=== PATIENT | male | born 1960 | race Hispanic/Latino ===

== ENCOUNTER 2017-05-15 11:28 | Emergency (ER) | payer OTHER ==
[2017-05-15 11:44] VITALS: BP 141/92
--- NOTE | 2017-05-15 12:08 | XRay Report ---
Left ankle 3 views: History: Left ankle and foot pain. 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 There is suspicion of fusion noted at the posterior aspect of the subtalar joint. Arthritic changes are noted at the naviculocuneiform joints dorsally. Spur posterior inferior calcaneum. Impression: Findings as detailed above. No evidence of acute fracture.
[2017-05-15] MEDS ORDERED: DECADRON IM ONE (14:11)
[2017-05-15] MEDS ORDERED: DEPO-MEDROL IM ONE (14:12)
[2017-05-15] MEDS ORDERED: ULTRAM PO ONE (14:12)
--- NOTE | 2017-05-15 14:14 | Emergency Department Report ---
ED Lower Extremity HPI - General Chief Complaint: Extremity Injury, Lower Stated Complaint: rolled l benita yest; now w foot pain he thinks is gout flare Time Seen by Provider: 05/15/17 14:07 Source: patient Mode of arrival: Ambulatory Limitations: No Limitations - History of Present Illness MD Complaint: foot injury, other (foot pain) -: Gradual, days(s) (2), unknown (recurrent a/c gout) Injury: Foot: Left Type of Injury: other (rolled ankle yest but more foot pain dt gout) Place: home Severity: mild Improves With: nothing Worsens With: weight bearing Context: other (rolled; gout) Associated Symptoms: swelling Treatments Prior to Arrival: NSAIDS - Related Data Previous Rx's Medication Instructions Recorded Last Taken Type Colchicine 0.6 mg PO DAILY #6 capsule 05/15/17 Unknown Rx predniSONE [Deltasone] 20 mg PO DAILY #5 tablet 05/15/17 Unknown Rx traMADol [Ultram] 50 mg PO Q6HR PRN #20 tablet 05/15/17 Unknown Rx Allergies Allergy/AdvReac Type Severity Reaction Status Date / Time No Known Allergies Allergy Unverified 05/15/17 11:40 ED Review of Systems ROS: Stated complaint: LEFT FOOT INJURY/GOUT Other details as noted in HPI Comment: All other systems reviewed and negative Constitutional: no symptoms reported ENT: denies: throat pain Cardiovascular: denies: chest pain, palpitations, dyspnea on exertion Gastrointestinal: denies: abdominal pain, nausea, vomiting Genitourinary: denies: urgency, dysuria Musculoskeletal: other ( r foot pain) Skin: other (foot red) Neurological: denies: headache, weakness Psychiatric: denies: anxiety, depression Hematological/Lymphatic: denies: easy bleeding ED Past Medical Hx - Past Medical History Previous Medical History?: Yes Additional medical history: Left foot and ankle pain, Gout - Surgical History Past Surgical History?: Yes Additional Surgical History: Right thumb surgery - Social History Smoking Status: Never Smoker Substance Use Type: Alcohol, Non Opiate Pain - Medications Home Medications: Home Medications Medication Instructions Recorded Confirmed Last Taken Type Colchicine 0.6 mg PO DAILY #6 capsule 05/15/17 Unknown Rx predniSONE [Deltasone] 20 mg PO DAILY #5 tablet 05/15/17 Unknown Rx traMADol [Ultram] 50 mg PO Q6HR PRN #20 tablet 05/15/17 Unknown Rx ED Physical Exam - General Limitations: No Limitations General appearance: alert - Head Head exam: Present: atraumatic - Eye Eye exam: Present: PERRL, EOMI - ENT ENT exam: Present: mucous membranes moist - Neck Neck exam: Present: normal inspection - Respiratory Respiratory exam: Present: normal lung sounds bilaterally - Cardiovascular Cardiovascular Exam: Present: regular rate - GI/Abdominal GI/Abdominal exam: Present: soft - Rectal Rectal exam: Present: deferred - Extremities Exam Extremities exam: Present: normal inspection, tenderness (foot at indicated area - l) - Expanded Lower Extremity Exam Left Lower Leg exam: Present: normal inspection Ankle exam: Present: normal inspection Foot/Toe exam: Present: tenderness, swelling, erythema Gait: Positive: observed and limited by pain 1 - red. tender. swelling as with gouty arthritis. mild med mal swelling - Back Exam Back exam: Present: normal inspection, full ROM - Neurological Exam Neurological exam: Present: alert, oriented X3, CN II-XII intact, reflexes normal. Absent: normal gait (limp) - Psychiatric Psychiatric exam: Present: normal affect, normal mood - Skin Skin exam: Present: warm, dry, ecchymosis (red over l foot) ED Course Vital Signs 05/15/17 11:40 Temperature 97.8 F Pulse Rate 84 Respiratory 20 Rate Blood Pressure 141/92 O2 Sat by Pulse 97 Oximetry - Reevaluation(s) Reevaluation #1: 05/15/17 to er w foot pain mild med mal swelling- l ankle l foot red, warm, swelling at indicated area hx gout good pulses rapid cap refill sensation intact. 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 ED Disposition Clinical Impression: Gout, Foot pain Disposition: TO HOME OR SELFCARE Is pt being admited?: No Does the pt Need Aspirin: No Condition: Stable Instructions: Acute Gouty Arthritis (ED) Additional Instructions: rest ice elevate meds as ordered follow up with your family doctor when you get home Prescriptions: Colchicine 0.6 mg PO DAILY #6 capsule predniSONE [Deltasone] 20 mg PO DAILY #5 tablet traMADol [Ultram] 50 mg PO Q6HR PRN #20 tablet PRN Reason: Pain Referrals: QUENTIN HOWELL [Other] - 3-5 Days Time of Disposition: 14:15
[2017-05-15] MEDS ORDERED: COLCRYS PO ONE (15:30)
== END 2017-05-15 14:57 | disposition home or self-care (01) ==
LOC: ED 11:28
DX: M10.9 Gout, unspecified (principal)
CPT/HCPCS: 73610; 96372; 99283; J1040; J1100